=== PATIENT | female | born 1985 | race Caucasian/White ===

== ENCOUNTER 2024-01-15 19:46 | Emergency (ER) | payer OTHER, SELFPAY ==
[2024-01-15] VITALS (12 sets, daily range): BP systolic 122–167; BP diastolic 70–102; PULSE 77–108; RESP 12–29; TEMP 36.6; O2SAT 90–99; BMI 43.4
--- NOTE | 2024-01-15 20:07 | EKG_ITS ---
[id number] [address] Test Date: 2024-01-15 Pat Name: Rock Benson Department: [facility] Room: Gender: Female Rehabilitation Construction Specialist: RICHI : 1985 Requested By: Order Number: [id number] Reading MD: Mark Gotti MD Measurements Intervals [place] Rate: 86 P: 52 [place]: 140 QRS: 15 QRSD: 88 T: 38 QT: 388 QTc: 464 Interpretive Statements Normal sinus rhythm Electronically Signed On 01-16-2024 22:33:56 PDT by Mark Gotti MD
--- NOTE | 2024-01-15 20:35 | ED.GENADULT ---
HPI - General Adult General Chief complaint: Hypertension Stated complaint: high BP/poss blood clot Time Seen by Provider: 01/15/24 19:52 Source: patient Mode of arrival: Ambulatory History of Present Illness HPI narrative: 38-year-old female with history of epilepsy presents for evaluation of swelling in her left arm, concerned that there may be a blood clot. Patient states that for several months now she was notice a small bump on the inside of her left arm, but today it swelled up to the size of the gum ball. It was very concerning to her and so she decided to present for evaluation. She states that while on the drive here the bump decreased in size and it is now back to its normal appearance. Patient also states that she would like to be evaluated for elevated blood pressure. She states that every time she sees her neurologist for her epilepsy her blood pressure is elevated and she has been told in the past by her friends that she should be seen for high blood pressure. At her neurologist's office it is frequently systolic 160-180 or higher. She does not measure her blood pressure at home and has not seen a primary care doctor about blood pressure readings. Related Data Previous Rx's Medication Instructions Recorded amlodipine 5 mg tablet 5 mg PO DAILY #30 tabs 01/15/24 Allergies Allergy/AdvReac Type Severity Reaction Status Date / Time No Known Drug Allergies Allergy Verified 01/15/24 19:57 Patient History Social History Smoking Status: Current every day smoker Smoking Status: Current every day smoker alcohol intake frequency: holidays/special occasions only Substance Use Type: does not use Exam Initial Vital Signs Initial Vital Signs: Vital Signs Pulse Rate 105 H 01/15/24 19:53 Pulse Oximetry 98 01/15/24 19:53 Const: Awake, alert, no acute distress, nontoxic appearing MSK: Superficial, pea-sized, soft mobile area inner left arm near elbow Skin: Warm, Dry, intact, no rashes Neuro: AO x3, CN II-XII grossly intact, moves all extremities Course Orders Ordered: ED Orders 01/15/24 19:59 EKG-12 Lead Stat 01/15/24 20:48 CBC Auto Diff [Complete Blood Count AUTO DIFF] Stat CMP [Comprehensive Metabolic Panel] Stat Vital Signs Vital signs: Vital Signs - 8 hr 01/15/24 21:00 01/15/24 21:01 01/15/24 21:01 Pulse Rate 82 83 Respiratory Rate 14 25 H Blood Pressure 122/73 Pulse Oximetry 97 98 Oxygen Delivery Method 01/15/24 21:31 01/15/24 21:42 01/15/24 21:42 Pulse Rate 108 H 78 Respiratory Rate 29 H 23 Blood Pressure 127/70 Pulse Oximetry 90 L 98 Oxygen Delivery Method 01/15/24 21:48 Pulse Rate 77 Respiratory Rate 16 Blood Pressure 127/70 Pulse Oximetry 97 Oxygen Delivery Method Room Air Medical Decision Making Lab Data 01/15/24 20:48 01/15/24 20:48 Labs: Lab Results 01/15/24 Range/Units 20:48 WBC 8.3 (4.5-11.0) X10^3/uL RBC 4.94 (4.0-5.2) X10^6/uL Hgb 13.9 (12.0-16.0) g/dL Hct 42.3 (36-46) % MCV 85.7 (80-100) fL MCH 28.1 (26-34) PG MCHC 32.8 (30-36) % RDW 14.5 (11.6-14.8) % Plt Count 299 (150-400) X10^3/uL Neut % (Auto) 67.2 (50-75) % Lymph % (Auto) 27.5 (25-40) % [place] % (Auto) 3.6 (3-14) % Eos % (Auto) 0.8 L (2-4) % Baso % (Auto) 0.9 (0-2) % Neut # (Auto) 5600 (6335-0349) /uL Lymph # (Auto) 2300 (6328-3481) /uL [place] # (Auto) 300 (0-900) /uL Eos # (Auto) 100 (0-450) /uL Baso # (Auto) 100 (0-100) /uL Sodium 140 (137-145) mmol/L Potassium 3.8 (3.4-5.1) mmol/L Chloride 110 H (98-107) mmol/L Carbon Dioxide 22 (22-32) mmol/L BUN 10 (7-17) mg/dL Creatinine 0.72 (0.52-1.04) mg/dL Estimated GFR > 60 (>60) mL/min BUN/Creatinine Ratio 13.9 (6-22) Glucose 100 (70-100) mg/dL Calcium 9.1 (8.4-10.2) mg/dL Total Bilirubin 0.4 (0.2-1.3) mg/dL AST 31 (14-36) IU/L ALT 32 (<35) IU/L Alkaline Phosphatase 68 (38-126) U/L Total Protein 7.7 (6.3-8.2) g/dL Albumin 4.2 (3.5-5.0) g/dL Globulin 3.5 (1.7-4.1) g/dL Albumin/Globulin Ratio 1.2 (1.0-2.8) MDM Narrative Medical decision making narrative: Well-appearing patient with isolated episode of swelling in her inner left arm, now resolved. This area is superficial, soft, mobile. Point of care ultrasound shows no abscess or fluid collection. May possibly be a lymph node, however it was definitely not anywhere near vasculature and not concerned for DVT of the upper extremity. Laboratory work is normal, no end-organ damage from elevated blood pressures. Started on low-dose amlodipine. Patient counseled to get blood pressure cuff for home monitoring and to keep it blood pressure diary to bring to a primary care doctor's appointment. Discharge Plan Departure Patient Disposition: Home Clinical Impression: Hypertension Instructions: DI for High Blood Pressure Activity Restrictions/Additional Instructions: I am not certain what caused the swollen area on your left arm, however when I ultrasounded the area there was no evidence of a blood clot. It may possibly be a lymph node that temporarily got swollen. I do not see any obvious abscess or other concerning findings on my ultrasound. Your blood work today is normal. I am starting you on a low-dose blood pressure medication that you can take 1 time per day. Get a home blood pressure cuff and keep a log of your blood pressure is 1 to 2 times daily. Bring this to a primary care doctor for further management of your blood pressure. Prescriptions: New amlodipine 5 mg tablet 5 mg PO DAILY Qty: 30 0RF Stand Alone Forms: Patient Portal/API
[2024-01-15 20:56] LABS: Add Manual Diff / Slide Review NO; Basophils Absolute Auto 100 /uL (0-100); Basophils Percent Auto 0.9 % (0-2); Eosinophils Absolute Auto 100 /uL (0-450); Eosinophils Percent Auto 0.8 % (2-4); Hematocrit 42.3 % (36-46); Hemoglobin 13.9 g/dL (12.0-16.0); Lymphocytes Absolute Auto 2300 /uL (1100-4500); Lymphocytes Percent Auto 27.5 % (25-40); Mean Corpuscular HGB Conc 32.8 % (30-36); Mean Corpuscular Hemoglobin 28.1 PG (26-34); Mean Corpuscular Volume 85.7 fL (80-100); Monocytes Absolute Auto 300 /uL (0-900); Monocytes Percent Auto 3.6 % (3-14); Neutrophils Absolute Auto 5600 /uL (1500-7000); Neutrophils Percent Auto 67.2 % (50-75); Platelet Count 299 X10^3/uL (150-400); Red Blood Cell Count 4.94 X10^6/uL (4.0-5.2); Red Cell Distribution Width 14.5 % (11.6-14.8); White Blood Cell Count 8.3 X10^3/uL (4.5-11.0)
[2024-01-15 21:15] LABS: Alanine Aminotransferase 32 IU/L (<35); Albumin 4.2 g/dL (3.5-5.0); Albumin Globulin Ratio 1.2 (1.0-2.8); Alkaline Phosphatase 68 U/L (38-126); Aspartate Aminotransferase 31 IU/L (14-36); BUN Creatinine Ratio 13.9 (6-22); Bilirubin Total 0.4 mg/dL (0.2-1.3); Blood Urea Nitrogen 10 mg/dL (7-17); Calcium 9.1 mg/dL (8.4-10.2); Carbon Dioxide 22 mmol/L (22-32); Chloride 110 mmol/L (98-107); Estimated Glomerular Filt Rate > 60 mL/min (>60); Globulin 3.5 g/dL (1.7-4.1); Glucose 100 mg/dL (70-100); HEMOLYSIS < 15 (0-50); Potassium 3.8 mmol/L (3.4-5.1); Sodium 140 mmol/L (137-145); Total Protein 7.7 g/dL (6.3-8.2)
== END 2024-01-15 21:57 | disposition home or self-care (01) ==
PROVIDERS: Emergency Provider Emergency Medicine
DX: I10 Essential (primary) hypertension (principal); F17.200 Nicotine dependence, unspecified, uncomplicated
CPT/HCPCS: 36415; 80053; 85025; 93005; 99281; 99284

== ENCOUNTER 2024-07-10 11:27 | Emergency (ER) | payer OTHER, MEDICAID, SELFPAY ==
[2024-07-10 11:33] VITALS: BP 153/74; PULSE 98; RESP 18; TEMP 36.6; O2SAT 96; BMI 44.8
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
--- NOTE | 2024-07-10 12:20 | DI.RAD.S_ITS ---
PROCEDURE: XR CHEST 2V INDICATIONS: substernal chest pain, had ? seizure 07/06/24 TECHNIQUE: 2 views of the chest were acquired. COMPARISON: None. FINDINGS: Surgical changes and devices: None. Lungs and pleura: No dense consolidation or pleural effusion. Mildly low lung volumes. Mediastinum: Normal heart size Bones and chest wall: Unremarkable IMPRESSION: No acute radiographic abnormality. Dictated by: Collins Stiles M.D. on 07/10/2024 at 11:49 Approved by: Collins Stiles M.D. on 07/10/2024 at 11:49
[2024-07-10] MEDS: KETOROLAC 30 MG/ML VIAL 15 MG IV (12:33)
[2024-07-10 12:37] LABS: Add Manual Diff / Slide Review NO; Basophils Absolute Auto 100 /uL (0-100); Basophils Percent Auto 1.8 % (0-2); Eosinophils Absolute Auto 100 /uL (0-450); Eosinophils Percent Auto 1.3 % (2-4); Hemoglobin 13.5 g/dL (12.0-16.0); Lymphocytes Absolute Auto 1900 /uL (1100-4500); Lymphocytes Percent Auto 26.1 % (25-40); Mean Corpuscular Hemoglobin 28.8 PG (26-34); Mean Corpuscular Volume 87.3 fL (80-100); Monocytes Absolute Auto 300 /uL (0-900); Monocytes Percent Auto 3.9 % (3-14); Neutrophils Absolute Auto 4800 /uL (1500-7000); Neutrophils Percent Auto 66.9 % (50-75); Platelet Count 290 X10^3/uL (150-400); Red Cell Distribution Width 13.1 % (11.6-14.8); White Blood Cell Count 7.1 X10^3/uL (4.5-11.0)
[2024-07-10 12:44] LABS: Prothrombin Time 11.8 SECONDS (9.4-12.5)
[2024-07-10 12:47] LABS: PTT Partial Thromboplastin Tim 34 SECONDS (25.1-36.5)
[2024-07-10 12:49] LABS: Alanine Aminotransferase 45 IU/L (<35); Albumin 4.1 g/dL (3.5-5.0); Albumin Globulin Ratio 1.3 (1.0-2.8); Alkaline Phosphatase 58 U/L (38-126); Aspartate Aminotransferase 43 IU/L (14-36); BUN Creatinine Ratio 13.9 (6-22); Bilirubin Total 0.6 mg/dL (0.2-1.3); Blood Urea Nitrogen 10 mg/dL (7-17); Calcium 9.3 mg/dL (8.4-10.2); Carbon Dioxide 24 mmol/L (22-32); Chloride 104 mmol/L (98-107); Estimated Glomerular Filt Rate > 60 mL/min (>60); Globulin 3.2 g/dL (1.7-4.1); Glucose 100 mg/dL (70-100); HEMOLYSIS < 15 (0-50); Sodium 137 mmol/L (137-145); Total Protein 7.3 g/dL (6.3-8.2)
[2024-07-10 13:56] LABS: Bacteria Urine Moderate (10-30); Culture Indicated Urine Specimen Cultured; Mucus Urine 1+ (Negative); RBC Urine 0-1/HPF (0-5/HPF); Squamous Epithelial Cell Urine 1-5 /HPF (0-5/HPF); Urine Volume 10mL (spun); WBC Urine 1-5/HPF (0-5/HPF)
== END 2024-07-10 13:47 | disposition home or self-care (01) ==
PROVIDERS: Emergency Provider Emergency Medicine
DX: R07.89 Other chest pain (principal); F17.210 Nicotine dependence, cigarettes, uncomplicated
CPT/HCPCS: 36415; 71046; 80053; 81003; 81015; 81025; 85025; 85610; 85730; 87077; 87086; 87147; 96372; 99284; J1885

== ENCOUNTER 2024-08-29 19:38 | Emergency (ER) | payer OTHER, MEDICAID, SELFPAY ==
[2024-08-29 19:52] VITALS: BP 143/80; PULSE 117; RESP 18; TEMP 36.7; O2SAT 98; BMI 45.6
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
== END 2024-08-29 22:10 | disposition left against medical advice (07) ==
PROVIDERS: Emergency Provider Student in an Organized Health Care Education/Training Program
DX: M79.672 Pain in left foot (principal); M25.512 Pain in left shoulder; V89.2XXA Person injured in unspecified motor-vehicle accident, traffic, initial encounter
CPT/HCPCS: 73030; 73630; 99281